=== PATIENT | male | born 1950 | race Caucasian/White ===

== ENCOUNTER 2016-08-01 08:57 | Day surgery (SDC) | payer OTHER ==
[~2016-08-01 08:57] MED LIST: LIDOCAINE W/ SODIUM BICARB 0.5 ML SYR ONE; Lactated Ringers 1,000 ML PRIMARY IV ONE
--- NOTE | 2016-08-01 11:08 | GEN.OPNOTE ---
Colonoscopy Procedure Note Surgery Date: 08/01/16 Preoperative Diagnosis: Colon cancer screening. Postoperative Diagnosis: Colon cancer screening. Procedure: Complete colonoscopy. Surgeon: Pradeep Roa MD Anesthesia Provider: Arianna Peck CRNA Anesthesia Type: MAC Indications: Patient is a 66-year-old whose last colonoscopy was in 2005. He is due for a screening colonoscopy. Findings: Prep : [Some retained stool in the right colon.] Cecum : [Normal] Ascending : [Normal] Transverse : [Normal] Sigmoid : [Normal] Rectum : [Normal] Digital Rectal Exam : [Prostate moderately enlarged but nonnodular.] A lubricated flexible colonoscope was inserted and passed to the blind end of the cecum. The ileocecal valve and blind end of the cecum were clearly seen. There was some retained particulate matter in the right colon. A small polyp could've been missed but nothing of significance. Air was aspirated as the scope was withdrawn. The entire colonoscopy was normal without polyp, tumor, neoplastic mass, infectious or inflammatory process. The scope was withdrawn completing the procedure. The patient tolerated the procedure well without complication. He was taken to outpatient surgery in stable condition. Follow-up will be with my office on an as-needed basis. We will recommend follow-up colonoscopy in 10 years time. If the patient has not had a PSA he should get one at some point.
[2016-08-01 11:22] VITALS: RESP 17
[2016-08-01 11:31] VITALS: TEMP 98
== END 2016-08-01 11:25 | disposition home or self-care (01) ==
LOC: SDSC 08:57
PROVIDERS: ATTEND Surgery
DX: Z12.11 Encounter for screening for malignant neoplasm of colon (principal)
CPT/HCPCS: 45378; J2704; J7120